=== PATIENT | female | born 1960 | race Caucasian/White ===

== ENCOUNTER 2019-03-19 05:51 | Day surgery (SDC) | payer OTHER ==
[~2019-03-19 05:51] MED LIST: SYNTHROID100 MCG PO
[2019-03-19] MEDS ORDERED: Tylenol #3 PO (08:07)
[2019-03-19] MEDS ORDERED: DOXYCYCLINE HY100 M2 PO (08:07)
== END 2019-03-19 14:35 | disposition home or self-care (01) ==
LOC: CIR.AMB 05:51
DX: N84.0 Polyp of corpus uteri (principal); D25.0 Submucous leiomyoma of uterus